=== PATIENT | female | born 2000 | race Caucasian/White ===

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

== ENCOUNTER 2019-11-17 18:19 | Inpatient (IN) | payer MEDICAID ==
[2019-11-17] MEDS ORDERED: Misoprostol 400 MCG (4 X 100 MCG TAB) RECTAL PRN (18:42)
[2019-11-17] MEDS ORDERED: Tranexamic Acid 1,000 MG in Sodium Chloride 0.9% 100 ML IV PRN (18:42)
[2019-11-17] MEDS ORDERED: Lactated Ringers 1,000 ML IV ONE (18:42)
[2019-11-17] MEDS ORDERED: Methylergonovine 0.2 MG/1 ML Amp IM PRN (18:42)
[2019-11-17] MEDS ORDERED: Lidocaine 1% 30 ML SDV INJECT PRN (18:42)
[2019-11-17] MEDS ORDERED: Sodium Chloride 0.9% 10 ML Syringe FLUSH PRN (18:42)
[2019-11-17] MEDS ORDERED: fentaNYL 100 MCG/2 ML SDV IVPUSH PRN (18:42)
[2019-11-17] MEDS ORDERED: Ondansetron 4 MG/2 ML SDV IVPUSH PRN (18:42)
[2019-11-17] MEDS ORDERED: Carboprost Tromethamine 250 MCG/1 ML Amp IM PRN (18:42)
[2019-11-17] MEDS ORDERED: Oxytocin/Normal Saline 30 UNIT/500 ML BAG IV SCH (18:45)
[2019-11-17] MEDS ORDERED: Lactated Ringers 1,000 ML IV SCH (18:45)
[2019-11-17] MEDS ORDERED: fentaNYL 100 MCG/2 ML SDV ONE (21:05)
[2019-11-17] MEDS ORDERED: EPINEPHrine 1 MG/1 ML Amp ONE (21:05)
--- NOTE | 2019-11-17 21:37 | PCM.PRNOTE ---
- Free Text/Narrative Note: Requested to provide analgesia to full term patient in severe pain. Upon entering the room, patient is sitting on edge of bed complaining of severe abdominal/pelvic pain and discomfort. Procedure was discussed with patient including adverse outcomes and expectations. Pt consented to analgesia, SAB/ IT. Pt placed into a proper sitting position. Landmarks for SAB/IT were identified and marked. Hands were washed and appropriate PPE was applied. Back was prepped with betadine x3. A sterile, transparent, fenestrated drape was applied. Excess betadine was removed. Using 3 mL of a 1% lidocaine solution , a skin wheel was placed at the L2/L3 interspace. A 24 ga (4 inch) [place] spinal needle was inserted until positive for CSF. Negative for heme or paresthesias. Injected fentanyl 20 mcg, sufentanil 25 mcg, and 6.75 mg of a 0.75% bupivacaine solution with an epi wash. Pt was placed left lateral position for approximately 20 minutes. There were zero complications or adverse outcomes. Will continue to monitor. Procedure Date & Time: 11/17/19 [id number]
--- NOTE | 2019-11-18 00:56 | HP ---
CHIEF COMPLAINT: Increased force and frequency of contractions. HISTORY OF PRESENT ILLNESS: A 19-year-old 1, para 0, currently at 38- 1/7 weeks' gestation, presents to the hospital for evaluation of labor. She was seen in the office this morning around 10 o'clock, reporting contractions started at 2:30 in the morning and were about every 7-10 minutes, irregular, and getting stronger, but she could breathe through them. I sent her home from the clinic, and tonight she comes back reporting that they steadily got stronger and closer together and are now about every 2 to 4 minutes. No persistent vaginal bleeding. No leakage of fluid. movement has been good. Reporting pain mostly in her back. No shortness of breath or chest pain. No symptoms of preeclampsia, and just crying through the contractions with the pain that she is having. PAST MEDICAL HISTORY: ADHD, bilateral kidney stones, chronic patellofemoral knee pain bilaterally, dysmenorrhea, environmental and seasonal allergies, history of hand fracture, wrist fractures. SURGICAL HISTORY: None. FAMILY HISTORY: Mother with obesity and pleomorphic adenoma of the parotid gland, renal stones, and heel spurs. Father with allergies, ADHD, and renal stones. Sister with asthma, allergies, and ADHD. Brother with seasonal allergies. Maternal grandmother with asthma. Paternal grandfather with asthma, allergic rhinitis, COPD, heart disease, and diabetes. Cousin with asthma. Maternal grandfather with depression. Paternal grandmother, no known diseases. Cousin with coronary artery disease and there are distant relatives who has had multiple births. No family history of arrhythmias, seizures, sudden less than age 50, defects, bleeding problems, clotting disorders, anesthesia problems, or cystic fibrosis. SOCIAL HISTORY: The patient is single. Last working as a [employer]. Her boyfriend, David, works at [employer]. He is healthy and has no major medical issues. His father and mother are both alive and well. His paternal uncle had brain cancer. This will be the first child for each of them. Randi does not use any tobacco, alcohol, or drugs. She has a sister and mother here with her for support in labor. MEDICATIONS: vitamins 1 daily, Claritin 10 mg p.o. daily as needed for allergies, Tylenol 650 mg as needed for pain. OBSTETRICAL HISTORY: She is a 1, para 0, blood type B positive, antibody screen negative. Hemoglobin was 12.7, platelets 185. Rubella immune. Hepatitis B nonreactive. HIV nonreactive. Gonorrhea and chlamydia negative. TSH normal at 0.68. Hepatitis C nonreactive. Wet prep negative. Abnormal 1- hour glucose tolerance test of 145, normal 3-hour test. Group B strep negative. ALLERGIES: Augmentin, intolerance. She has diarrhea, nausea, and vomiting. REVIEW OF SYSTEMS: As listed above under the history of present illness. No fever, chills, chest pain, shortness of breath, blurry vision, or headaches. OBJECTIVE: General: Crying through the contractions and reporting back pain. Pretty indecisive at this time of what she wants to do or how she wants it done due to her discomfort. Vital signs: Temp 99.1, [id number], Resp 20. BP 145/87 recheck 119/67. HEENT: Grossly unremarkable. Heart: Regular without murmur. Lungs: Clear to auscultation bilaterally. Abdomen: Soft, nontender. Contractions every 2 to 4 minutes. Baby is vertex. heart tones 150 beats per minute at baseline with moderate [id number] variability and accelerations noted. Deloit shows contractions every 2 to 4 minutes. Cervix per nurse was at 3+ cm dilated, 95% effaced, and -1. My recheck almost 45 minutes after the patient has been here is 4, 100%, and -1. Bag of water is intact. Extremities: Trace edema. No erythema or tenderness. Skin: Warm. She is sweating, and no obvious rashes or lesions. ASSESSMENT: 1. 1, para 0 in a patient in active labor. 2. Environmental and seasonal allergies. 3. History of bilateral kidney stones and dysmenorrhea. PLAN: Expectant management of labor at this time and allow her to progress on her own. If augmentation is necessary, that can be performed. Attempt to leave the bag of water intact as that is helping with some of her pain control at this time, but we may need to rupture it to help labor progress. The patient right now is not wanting an intrathecal, but depending on how she tolerates her pain, she may end up changing her mind. We are also going to try to get her into some different positions as it sounds like she is having some back labor and I cannot for certain tell what position the baby's head is in as far as OP or NERY. [facility] /[id number] MTDD
[2019-11-18] MEDS ORDERED: Tranexamic Acid 1,000 MG in Sodium Chloride 0.9% 100 ML IV PRN (02:00)
[2019-11-18] MEDS ORDERED: Simethicone 80 MG Tab.Chew PO PRN (02:00)
[2019-11-18] MEDS ORDERED: Benzocaine/Menthol 20%-0.5% Spray 56 GM Canister TOP PRN (02:00)
[2019-11-18] MEDS ORDERED: Misoprostol 400 MCG (4 X 100 MCG TAB) RECTAL PRN (02:00)
--- NOTE | 2019-11-18 02:52 | DEL ---
DATE: 11/18/2019 PREPROCEDURE DIAGNOSES: 1. 1, para 0, 38 and 2/7 weeks . 2. Blood type B positive, rubella immune, group B strep negative. POSTPROCEDURE DIAGNOSES: 1. 1, para 1, 38 and 2/7 weeks . 2. Blood type B positive, rubella immune, group B strep negative. 3. Status post spontaneous vaginal delivery with first-degree laceration that did not require repair. BRIEF HISTORY: The patient is a 19-year-old with the above-listed diagnoses, who presented to the hospital with spontaneous onset of labor that lasted about 7 hours of active stage prior to delivery and about 24 hours from the onset of contractions which she labored naturally without any need for Pitocin or other augmentation. She had an intrathecal after she reached 6 cm of dilatation for pain management. Otherwise, she went on to complete, labor down for a short period of time and pushed for just over an hour before delivery as detailed below. DETAILS: With the patient in dorsal lithotomy position, she delivered a viable male infant over intact perineum in the OA position. was dried, stimulated and mouth was bulb suctioned, and baby placed upon mother's abdomen. After a delay, 3-vessel umbilical cord was doubly clamped and cut and cord blood sample obtained. Placenta then delivered by gentle cord traction and concomitant uterine massage, inspected and intact. Labia and vagina inspected and there was a superficial skin tear that did not need any repair on the perineum. There was also a first-degree superficial laceration that was hemostatic and did not need repair. FINDINGS: Viable male . Weight 2885 and scores 8 & 09. COMPLICATIONS: None. ESTIMATED BLOOD LOSS: 100 mL. DISPOSITION: Mother and baby to stay in the room at this time, continuing with [id number] and possibly initiating breast-feeding. [facility] /[id number] SUSAN
[2019-11-18] MEDS: Ibuprofen 800 MG Tab PO PRN ×2 (03:55→14:28)
[2019-11-18] MEDS: Acetaminophen 325 MG Tab PO PRN ×3 (10:58→21:08)
[2019-11-18] MEDS: Prenatal Multivitamin with Calcium/Folic Acid/Iron Tab PO SCH (10:58)
[2019-11-18] MEDS: Docusate Sodium 100 MG Cap PO PRN ×2 (10:58→21:11)
[2019-11-19] MEDS: Ibuprofen 800 MG Tab PO PRN ×3 (02:11→20:06)
[2019-11-19] MEDS: Docusate Sodium 100 MG Cap PO PRN ×2 (10:35→20:07)
[2019-11-19] MEDS: Prenatal Multivitamin with Calcium/Folic Acid/Iron Tab PO SCH (10:35)
--- NOTE | 2019-11-19 13:24 | PN ---
DATE: 11/19/2019 SUBJECTIVE: Postvaginal delivery day #1. The patient is doing well, ambulating, tolerating regular diet. Had a small bowel movement, is voiding without difficulties. No chest pain. No shortness of breath. seems to be going well. Bleeding is appropriate. She denies any other concerns or complaints. She was hoping to go home today. However, we have talked to her about the fact that she is a first-time young mother who is breast feeding and they would like the circumcision done as well, and it would be best for them to stay overnight after the circumcision is completed to make sure they are fully comfortable with the circumcision cares and to make sure continues to go well, etc. OBJECTIVE: Vital Signs: Temperature is 98.2, pulse 89, blood pressure 120/74, respiratory rate of 16, O2 saturations 99% on room air. Heart: Regular without murmur. Lungs: Clear to auscultation bilaterally. Abdomen: Soft, nontender. Positive bowel sounds. Fundus firm below the umbilicus. Extremities: No edema, erythema, or tenderness noted. ASSESSMENT: 1. Post vaginal delivery, day #1, doing well. 2. Lactating mother. 3. 1, now para 1-0-0-1. PLAN: Continue normal post delivery cares and anticipate discharge home tomorrow. The patient and her boyfriend's questions have been answered. [facility] /[id number]
[2019-11-19] MEDS: Acetaminophen 325 MG Tab PO PRN (21:32)
[2019-11-20] MEDS: Ibuprofen 800 MG Tab PO PRN (10:50)
[2019-11-20] MEDS: Prenatal Multivitamin with Calcium/Folic Acid/Iron Tab PO SCH (10:50)
[2019-11-20] MEDS: Docusate Sodium 100 MG Cap PO PRN (10:50)
[2019-11-20] MEDS ORDERED: fentaNYL 100 MCG/2 ML SDV ITHECAL ONE (12:01)
[2019-11-20] MEDS ORDERED: EPINEPHrine 1 MG/1 ML Amp ONE (12:01)
--- NOTE | 2019-11-21 15:53 | DISCH ---
ADMITTING DIAGNOSES: 1. 38-1/7 weeks' intrauterine . 2. 1, para 0. 3. Blood type B positive, rubella immune, and group B strep negative. DISCHARGE DIAGNOSES: 1. Delivered, at 38-2/7 weeks' gestation. 2. 1, now para 1-0-0-1. 3. Status post uncomplicated spontaneous vaginal delivery with superficial laceration that did not need repair. 4. Blood type B positive, rubella immune, and group B strep negative. BRIEF HISTORY: This 19-year-old female presented to the hospital with active spontaneous labor, which was progressing nicely on its own. She did receive an intrathecal for anesthesia when she was around 6 cm dilated. Had spontaneous rupture of membranes of clear fluid and went on to a normal vaginal delivery after about 7 hours of active labor, 52 minutes of pushing, and placenta delivered after about 5 minutes. There was a superficial laceration noted, but it was hemostatic and did not need repair. She did well after delivery, her baby, and meeting all of the routine discharge criteria. HOSPITAL COURSE: Unremarkable. She is doing well. There have been no concerns. Admission hemoglobin was 12.3 and platelets 166. Blood loss at delivery was only around 100 mL, so followup blood work was not necessary. She is appropriately bonding with her child and mood has been good. PHYSICAL EXAMINATION: General: Discharge condition is good. Vital Signs: Temperature is 98.2, pulse 79, blood pressure 120/80, respiratory rate of 16, and O2 saturations 98% on room air. Heart: Regular without murmur. Lungs: Clear to auscultation bilaterally. Abdomen: Soft and nontender. Positive bowel sounds throughout. Fundus was firm and below the umbilicus. Extremities: No edema, erythema, or tenderness noted. DISPOSITION: Home with family. DISCHARGE MEDICATIONS: [id number] ibuprofen and Tylenol as needed for pain and vitamin continue 1 daily. FOLLOWUP: She will be seen in 6 to 8 weeks for her exam. I will be able to follow up on her for any depression symptoms when she brings her in tomorrow and at 2 weeks of age for routine checks. DISCHARGE INSTRUCTIONS: All of her questions have been answered, and she has been given routine instructions for a post-vaginal delivery for a mother. [facility] /[id number]
== END 2019-11-20 11:45 | disposition home or self-care (01) | DRG 807 ==
LOC: DL.OBCHECK 18:19 → DL.OB 18:43 → OBSVTOIN 11-18 01:22
PROVIDERS: ADMIT Family Medicine; ATTEND Family Medicine
PROC: 10E0XZZ Delivery of Products of Conception, External Approach (ICD-10-PCS; principal; 2019-11-18)
PROC: 3E0R3BZ Introduction of Anesthetic Agent into Spinal Canal, Percutaneous Approach (ICD-10-PCS; 2019-11-18)
DX: O70.0 First degree perineal laceration during delivery (principal); Z37.0 Single live birth; Z3A.38 38 weeks gestation of pregnancy; Z79.899 Other long term (current) drug therapy; Z88.1 Allergy status to other antibiotic agents
CPT/HCPCS: 36415; 51701; 59409; 85027; A9270-GY; J0171; J2405; J2590; J3010; J7120

== ENCOUNTER 2020-06-29 11:11 | Emergency (ER) | payer MEDICAID | END 2020-06-29 12:32 | disposition left against medical advice (07) | LOC: DL.ED 11:11 | DX: Z53.21 Procedure and treatment not carried out due to patient leaving prior to being seen by health care provider (principal) ==

== ENCOUNTER 2022-10-04 09:33 | Inpatient (IN) | payer MEDICAID ==
[2022-10-04] MEDS ORDERED: Methylergonovine 0.2 MG/1 ML Amp IM PRN (12:32)
[2022-10-04] MEDS ORDERED: Lactated Ringers 1,000 ML IV ONE (12:32)
[2022-10-04] MEDS ORDERED: fentaNYL 100 MCG/2 ML SDV IVPUSH PRN (12:32)
[2022-10-04] MEDS ORDERED: Sodium Chloride 0.9% 10 ML Syringe FLUSH PRN ×2 (12:32→12:35)
[2022-10-04] MEDS ORDERED: Acetaminophen 325 MG Tab PO PRN ×2 (12:32→22:28)
[2022-10-04] MEDS ORDERED: Misoprostol 400 MCG (4 X 100 MCG TAB) RECTAL PRN (12:32)
[2022-10-04] MEDS ORDERED: Carboprost Tromethamine 250 MCG/1 ML Amp IM PRN ×2 (12:32→22:28)
[2022-10-04] MEDS ORDERED: Ondansetron 4 MG/2 ML SDV IVPUSH PRN ×2 (12:32→22:25)
[2022-10-04] MEDS ORDERED: Lidocaine 1% 10 ML MDV INJECT PRN (12:32)
[2022-10-04] MEDS ORDERED: Promethazine 25 MG/ML SDV IM PRN ×2 (12:37→22:25)
[2022-10-04] MEDS ORDERED: Famotidine 20 MG/2 ML SDV IVPUSH PRN (12:37)
[2022-10-04] MEDS ORDERED: Naloxone 2 MG/2 ML Syringe IVPUSH PRN ×2 (12:37→22:25)
[2022-10-04] MEDS ORDERED: ePHEDrine 50 MG/ML SDV IVPUSH PRN ×2 (12:37→22:25)
[2022-10-04] MEDS ORDERED: Lactated Ringers 500 ML IV SCH ×3 (12:45→22:30)
[2022-10-04] MEDS: Lactated Ringers 1,000 ML IV SCH ×2 (14:57→20:36)
[2022-10-04] MEDS: Oxytocin/Normal Saline 30 UNIT/500 ML BAG IV SCH (15:13)
[2022-10-04] MEDS ORDERED: Sodium Chloride 0.9% 10 ML Syringe FLUSH SCH (21:00)
[2022-10-04] MEDS ORDERED: Ondansetron 4 MG/2 ML SDV ONE (21:17)
[2022-10-04] MEDS ORDERED: EPINEPHrine 1 MG/ML SDV ONE (21:17)
[2022-10-04] MEDS ORDERED: Dexmedetomidine 200 MCG/2 ML SDV ONE (21:17)
[2022-10-04] MEDS ORDERED: Simethicone 80 MG Tab.Chew PO PRN (22:28)
[2022-10-04] MEDS ORDERED: Benzocaine/Menthol 20%-0.5% Spray 78 GM Cannister TOP PRN (22:28)
[2022-10-05] MEDS: Oxytocin/Normal Saline 30 UNIT/500 ML BAG IV SCH (00:30)
[2022-10-05] MEDS: Ibuprofen 800 MG Tab PO PRN ×3 (00:51→18:28)
[2022-10-05] MEDS: Lactated Ringers 1,000 ML IV SCH (06:33)
[2022-10-05] MEDS: Ferrous Sulfate 325 MG Tab PO SCH (07:55)
[2022-10-05] MEDS: Prenatal Multivitamin with Calcium/Folic Acid/Iron Tab PO SCH ×2 (07:56→13:10)
[2022-10-05] MEDS: Docusate Sodium 100 MG Cap PO PRN (21:16)
[2022-10-06] MEDS: Ibuprofen 800 MG Tab PO PRN ×2 (02:13→11:42)
[2022-10-06] MEDS: Ferrous Sulfate 325 MG Tab PO SCH (08:54)
[2022-10-06] MEDS: Prenatal Multivitamin with Calcium/Folic Acid/Iron Tab PO SCH (08:54)
[2022-10-06] MEDS: Docusate Sodium 100 MG Cap PO PRN (11:42)
== END 2022-10-06 14:16 | disposition home or self-care (01) | DRG 806 ==
LOC: DL.OB 13:53 → OBSVTOIN 22:04
PROVIDERS: ADMIT Family Medicine; ATTEND Family Medicine
PROC: 10E0XZZ Delivery of Products of Conception, External Approach (ICD-10-PCS; principal; 2022-10-04)
PROC: 3E033VJ Introduction of Other Hormone into Peripheral Vein, Percutaneous Approach (ICD-10-PCS; 2022-10-04)
PROC: 00HU33Z Insertion of Infusion Device into Spinal Canal, Percutaneous Approach (ICD-10-PCS; 2022-10-04)
PROC: 3E0R3BZ Introduction of Anesthetic Agent into Spinal Canal, Percutaneous Approach (ICD-10-PCS; 2022-10-04)
DX: O99.02 Anemia complicating childbirth (principal); O72.1 Other immediate postpartum hemorrhage; Z37.0 Single live birth; D64.9 Anemia, unspecified; Z3A.39 39 weeks gestation of pregnancy; Z88.1 Allergy status to other antibiotic agents; T41.3X5A Adverse effect of local anesthetics, initial encounter; R29.90 Unspecified symptoms and signs involving the nervous system; Z20.822 Contact with and (suspected) exposure to COVID-19
CPT/HCPCS: 01967; 36415; 51701; 59025; 59409; 85027; A9270-GY; J2405; J2590; J7120; U0002